=== PATIENT | female | born 1945 | race Two or more races ===

== ENCOUNTER 2017-10-23 10:16 | Observation (INO) | payer MEDICARE, MEDICAID ==
[2017-10-23] VITALS (7 sets, daily range): BP systolic 113–169; BP diastolic 68–92; PULSE 63–95; RESP 16–20; TEMP 96.1–97.7; O2SAT 96–100
[~2017-10-23] VITALS: Ht 165.1 cm; Wt 83.5 kg
[~2017-10-23 10:16] MED LIST: ALBU1AER INH; BACT800T5 PO; CITA20TA4 PO; MOME17I; SYMB160A INH; TIZA4CAP PO
[2017-10-23] MEDS ORDERED: LEXA10TA PO (10:36)
[2017-10-23] MEDS ORDERED: ASPI81CH6 CHEW (10:36)
[2017-10-23] MEDS ORDERED: SYMB160A INH (10:36)
--- NOTE | 2017-10-23 10:41 | PD ---
HPI Chief Complaint: Chest Pain Time Seen by Provider: 10:31 Travel History International Travel<30 days: No Contact w/Intl Traveler<30days: No Traveled to known affect area: No History of Present Illness HPI This 72-year-old female is complaining that she had chest pain last night. The pain lasted for about an hour. There is between 2 and 3 AM. She says it woke her from sleep. She does not recall being short of breath and does not recall any diaphoresis or radiation of the pain. She took low-dose aspirin she has not had pain like this before. She has no history of heart disease. She has been checking her blood pressure at home and has had some elevated readings recently. She has a history of depression and takes an antidepressant. She was recently changed to generic Lexapro and thinks that since being on the Lexapro the blood pressure has been somewhat labile. PFSH Past Medical History ?: Not Social History Tobacco Use: No Allergies-Medications (Allergen,Severity, Reaction): Coded Allergies: No Known Allergies (Verified Allergy, Unknown, 10/23/17) Reported Meds & Prescriptions Reported Meds & Active Scripts Active Reported Aspirin Low Dose (Aspirin) 81 Mg Chew 243 Mg CHEW ONCE Symbicort Inh (Budesonide/Formoterol Fumarate) 160-4.5 Mcg/Act Aero 2 Puff INH Q12HR Lexapro (Escitalopram Oxalate) 10 Mg Tab 10 Mg PO DAILY Review of Systems General / Constitutional: No: Fever, Chills Eyes: No: Diploplia, Blurred Vision HENT: Positive: Headaches, No: Vertigo, Lightheadedness Cardiovascular: Positive: Chest Pain or Discomfort, No: Palpitations, Irregular Rhythm Respiratory: No: Cough, Shortness of Breath Gastrointestinal: No: Vomiting, Diarrhea Genitourinary: No: Urgency, Frequency Musculoskeletal: No: Myalgias Skin: No Rash, No Itching Neurologic: No: Weakness, Dizziness Psychiatric: Positive: Depression, No: Anxiety Endocrine: No: Heat Intolerance, Cold Intolerance Hematologic/Lymphatic: No: Easy Bruising Physical Exam Narrative GENERAL: Well-developed male SKIN: Focused skin assessment warm/dry. HEAD: Atraumatic. Normocephalic. EYES: Pupils equal and round. No scleral icterus. No injection or drainage. ENT: No nasal bleeding or discharge. Mucous membranes pink and moist. NECK: Trachea midline. No JVD. CARDIOVASCULAR: Regular rate and rhythm. No murmur appreciated. RESPIRATORY: No accessory muscle use. Clear to auscultation. Breath sounds equal bilaterally. GASTROINTESTINAL: Abdomen soft, non-tender, nondistended. Hepatic and splenic margins not palpable. MUSCULOSKELETAL: No obvious deformities. No clubbing. No cyanosis. No edema. NEUROLOGICAL: Awake and alert. No obvious cranial nerve deficits. Motor grossly within normal limits. Normal speech. PSYCHIATRIC: Appropriate mood and affect; insight and judgment normal. Data Data Last Documented VS Vital Signs Date Time Temp Pulse Resp B/P (MAP) Pulse Ox O2 Delivery O2 Flow Rate FiO2 10/23/17 11:27 96 10/23/17 11:27 70 16 10/23/17 10:30 97.7 Orders Orders Electrocardiogram (10/23/17 10:38) Ckmb (Isoenzyme) Profile (10/23/17 10:38) Complete Blood Count With Diff (10/23/17 10:38) Comprehensive Metabolic Panel (10/23/17 10:38) Magnesium (Mg) (10/23/17 10:38) Prothrombin Time / Inr (Pt) (10/23/17 10:38) Act Partial Throm Time (Ptt) (10/23/17 10:38) Troponin I (10/23/17 10:38) Chest, Single Ap (10/23/17 10:38) Ecg Monitoring (10/23/17 10:38) Bilateral Bp Monitoring (10/23/17 10:38) Iv Access Insert/Monitor (10/23/17 10:38) Oximetry (10/23/17 10:38) Oxygen Administration (10/23/17 10:38) Sodium Chloride 0.9% Flush (Ns Flush) (10/23/17 10:45) Admit Order (Ed Use Only) (10/23/17 12:20) Labs Laboratory Tests Test 10/23/17 10:25 White Blood Count 8.0 TH/MM3 Red Blood Count 4.70 MIL/MM3 Hemoglobin 13.0 GM/DL Hematocrit 39.3 % Mean Corpuscular Volume 83.7 FL Mean Corpuscular Hemoglobin 27.6 PG Mean Corpuscular Hemoglobin Concent 33.0 % Red Cell Distribution Width 13.8 % Platelet Count 284 TH/MM3 Mean Platelet Volume 9.4 FL Neutrophils (%) (Auto) 67.5 % Lymphocytes (%) (Auto) 25.1 % Monocytes (%) (Auto) 5.8 % Eosinophils (%) (Auto) 1.4 % Basophils (%) (Auto) 0.2 % Neutrophils # (Auto) 5.4 TH/MM3 Lymphocytes # (Auto) 2.0 TH/MM3 Monocytes # (Auto) 0.5 TH/MM3 Eosinophils # (Auto) 0.1 TH/MM3 Basophils # (Auto) 0.0 TH/MM3 CBC Comment DIFF FINAL Differential Comment Prothrombin Time 10.9 SEC Prothromb Time International Ratio 1.1 RATIO Activated Partial Thromboplast Time 29.5 SEC Blood Urea Nitrogen 13 MG/DL Creatinine 0.70 MG/DL Random Glucose 109 MG/DL Total Protein 7.3 GM/DL Albumin 3.4 GM/DL Calcium Level 8.9 MG/DL Magnesium Level 1.7 MG/DL Alkaline Phosphatase 101 U/L Aspartate Amino Transf (AST/SGOT) 19 U/L Alanine Aminotransferase (ALT/SGPT) 23 U/L Total Bilirubin 0.6 MG/DL Sodium Level 141 MEQ/L Potassium Level 3.9 MEQ/L Chloride Level 107 MEQ/L Carbon Dioxide Level 25.9 MEQ/L Anion Gap 8 MEQ/L Estimat Glomerular Filtration Rate 83 ML/MIN Total Creatine Kinase 41 U/L Troponin I LESS THAN 0.02 NG/ML MDM Medical Decision Making Medical Screen Exam Complete: Yes Emergency Medical Condition: Yes Medical Record Reviewed: Yes Differential Diagnosis Differential includes atypical chest pain, coronary artery disease, GERD, Narrative Course EKG shows normal sinus rhythm. Troponin is less than 0.02. I will recommend evaluation the chest pain center Diagnosis Primary Impression: Chest pain Admitting Information Admitting Physician Requests: Observation Clarence Izaguirre MD Oct 23, 2017 10:41
[2017-10-23] MEDS ORDERED: SODIUM CHLORIDE 0.9% FLUSH 10 ML FLUSH IVF PRN (10:45)
[2017-10-23 11:01] LABS: AUTOMATED NEUTROPHIL # 5.4 TH/MM3 (1.8-7.7); BASOPHIL % 0.2 % (0.0-2.0); EOSINOPHIL # 0.1 TH/MM3 (0-0.4); EOSINOPHIL % 1.4 % (0.0-4.0); HEMATOCRIT 39.3 % (35.0-46.0); LYMPH % 25.1 % (9.0-44.0); MEAN CELL VOLUME 83.7 FL (80.0-100.0); MEAN CORPUSCULAR HEMOGLOBIN 27.6 PG (27.0-34.0); MEAN PLATELET VOLUME 9.4 FL (7.0-11.0); MONO % 5.8 % (0.0-8.0); MONOCYTE # 0.5 TH/MM3 (0-0.9); NEUT % 67.5 % (16.0-70.0); PLATELET COUNT 284 TH/MM3 (150-450); RED CELL DISTRIBUTION WIDTH 13.8 % (11.6-17.2)
[2017-10-23 11:07] LABS: INTERNATIONAL NORMALIZED RATIO 1.1 RATIO; PROTHROMBIN TIME - PATIENT 10.9 SEC (9.8-11.6)
[2017-10-23 11:15] LABS: CHLORIDE 107 MEQ/L (98-107); SODIUM (NA) 141 MEQ/L (136-145)
[2017-10-23 11:19] LABS: ALBUMIN 3.4 GM/DL (3.4-5.0); BICARBONATE 25.9 MEQ/L (21.0-32.0); BLOOD UREA NITROGEN 13 MG/DL (7-18); CALCIUM 8.9 MG/DL (8.5-10.1); GLUCOSE,RANDOM 109 MG/DL (74-106); MAGNESIUM 1.7 MG/DL (1.5-2.5)
[2017-10-23 11:22] LABS: ALT (GPT) 23 U/L (10-53); AST (GOT) 19 U/L (15-37); GLOMERULAR FILTRATION RATE 83 ML/MIN (>89)
[2017-10-23 11:24] LABS: TOTAL BILIRUBIN ADULT 0.6 MG/DL (0.2-1.0); TOTAL PROTEIN 7.3 GM/DL (6.4-8.2)
[2017-10-23 11:25] LABS: ALKALINE PHOSPHATASE 101 U/L (45-117)
[2017-10-23 11:35] LABS: TROPONIN I LESS THAN 0.02 NG/ML (0.02-0.05)
--- NOTE | 2017-10-23 12:03 | RADRPT ---
EXAM DATE/TIME: 10/23/2017 11:03 [facility] COMPARISON: No previous studies available for comparison. INDICATIONS : Chest pain since last night. MEDICAL HISTORY : Asthma. SURGICAL HISTORY : None. ENCOUNTER: Initial ACUITY: 2 days PAIN SCORE: 6/10 LOCATION: Bilateral chest FINDINGS: The cardiac silhouette is enlarged in transverse diameter. The lungs are free of acute parenchymal op acity. No effusions are identified. CONCLUSION: Cardiomegaly. No acute pulmonary disease. Curtis Johnson MD on October 23, 2017 at 12:01 Board Certified Radiologist. This report was verified electronically.
[2017-10-23] MEDS ORDERED: ACETAMINOPHEN/HYDROcodone 325 MG/7.5 MG TAB PO PRN (13:00)
[2017-10-23] MEDS ORDERED: NITROGLYCERIN 0.4 MG SL 25 TABS/BTL SL PRN (13:00)
[2017-10-23] MEDS ORDERED: SODIUM CHLORIDE 0.9% FLUSH 10 ML FLUSH IV FLUSH PRN (13:00)
[2017-10-23] MEDS ORDERED: ACETAMINOPHEN 500 MG CPLT PO PRN (13:00)
[2017-10-23] MEDS ORDERED: ONDANSETRON HCL 4 MG/2 ML VIAL IV PUSH PRN (13:00)
[2017-10-23] MEDS ORDERED: MORPHINE SULFATE 2 MG/ML INJ IV PUSH PRN (13:15)
--- NOTE | 2017-10-23 14:00 | HHI.HP ---
HPI Service [facility] Primary Care Physician No Primary Care Physician Admission Diagnosis CHEST PAIN Diagnoses: Chief Complaint: Chest pain History of Present Illness This patient is a 72-year-old female with a history of asthma and depression. For the last several months she's had intermittent elevated blood pressure. She says once her Lexapro was changed to generic her blood pressure became unstable. She does not follow up with the primary doctor's locally. She has had intermittent chest discomfort for one day. It lasted for about an hour and after she took an aspirin it resolved. It was nonradiating and severe, and it has been localized to the epigastric area. She has not taken any Pepcid or Tums. She does not recall having any shortness of breath, diaphoresis or radiation of the pain. She did come to the emergency room for further evaluation. At home her blood pressure was 160/100 and in the emergency room was 162/92. Patient's EKG on my review does show some left ventricle hypertrophy, x-ray may have some slight increased cardiac silhouette but otherwise the pulmonary film is normal. Patient and recommended for observation in the chest pain center for further evaluation of atypical chest pain Review of Systems Constitutional: DENIES: Diaphoretic episodes, Fatigue, Fever, Weight gain, Weight loss, Chills, Dizziness, Change in appetite, Night Sweats Endocrine: DENIES: Abnorml menstrual pattern, Heat/cold intolerance, Polydipsia , Polyuria, Polyphagia Eyes: DENIES: Blurred vision, Diplopia, Eye inflammation, Eye pain, Vision loss , Photosensitivity, Double Vision Ears, nose, mouth, throat: DENIES: Tinnitus, Hearing loss, Vertigo, Nasal discharge, Oral lesions, Throat pain, Hoarseness, Ear Pain, Running Nose, Epistaxis, Sinus Pain, Toothache, Odynophagia Respiratory: DENIES: Apneas, Cough, Snoring, Wheezing, Hemoptysis, Sputum production, Shortness of breath Cardiovascular: COMPLAINS OF: Chest pain Genitourinary: DENIES: Abnormal vaginal bleeding, Dysmenorrhea, Dyspareunia, Sexual dysfunction, Urinary frequency, Urinary incontinence, Urgency, Hematuria , Dysuria, Nocturia, Vaginal discharge Musculoskeletal: COMPLAINS OF: Joint pain (in the knees), DENIES: Muscle aches , Stiffness, Joint Swelling, Back pain, Neck pain Integumentary: DENIES: Abnormal pigmentation, Pruritus, Rash, Nail changes, Breast masses, Breast skin changes, Nipple discharge Hematologic/lymphatic: DENIES: Bruising, Lymphadenopathy Immunologic/allergic: DENIES: Eczema, Urticaria Psychiatric: DENIES: Anxiety, Confusion, Mood changes, Depression, Hallucinations, Agitation, Suicidal Ideation, Homicidal Ideation, Delusions Except as stated in HPI: all other systems reviewed are Neg Past Family Social History Past Medical History Anxiety/depression Asthma Past Surgical History Denies Reported Medications Reviewed in the EMR, took an aspirin yesterday Allergies: Coded Allergies: No Known Allergies (Verified Allergy, Unknown, 10/23/17) Active Ordered Medications Reviewed in the EMR Family History Father in his 80s from Alzheimer's-related complication Mother at 79 cause unknown Social History Lives alone, no tobacco alcohol Retired adjunct nursing faculty Physical Exam Vital Signs Vital Signs Date Time Temp Pulse Resp B/P (MAP) Pulse Ox O2 Delivery O2 Flow Rate FiO2 10/23/17 13:30 10/23/17 11:27 96 10/23/17 11:27 70 16 146/88 (107) 96 10/23/17 10:31 95 18 99 10/23/17 10:30 97.7 95 16 169/92 (117) 99 Physical Exam GENERAL: This is a well-nourished, well-developed patient, in no apparent distress. SKIN: No rashes, ecchymoses or lesions. Cool and dry. HEAD: Atraumatic. Normocephalic. No temporal or scalp tenderness. EYES: Pupils equal round and reactive. Extraocular motions intact. No scleral icterus. No injection or drainage. ENT: Nose without bleeding, purulent drainage or septal hematoma. Throat without erythema, tonsillar hypertrophy or exudate. Uvula midline. Airway patent. NECK: Trachea midline. No JVD or lymphadenopathy. Supple, nontender, no meningeal signs. CARDIOVASCULAR: Regular rate and rhythm without murmurs, gallops, or rubs. RESPIRATORY: Clear to auscultation. Breath sounds equal bilaterally. No wheezes , rales, or rhonchi. GASTROINTESTINAL: Abdomen soft, non-tender, nondistended. No hepato-splenomegaly , or palpable masses. No guarding. MUSCULOSKELETAL: Extremities without clubbing, cyanosis, or edema. No joint tenderness, effusion, or edema noted. No calf tenderness. Negative Homans sign bilaterally. NEUROLOGICAL: Awake and alert. Cranial nerves II through XII intact. Motor and sensory grossly within normal limits. Five out of 5 muscle strength in all muscle groups. Normal speech. Laboratory Laboratory Tests Test 10/23/17 10:25 White Blood Count 8.0 Red Blood Count 4.70 Hemoglobin 13.0 Hematocrit 39.3 Mean Corpuscular Volume 83.7 Mean Corpuscular Hemoglobin 27.6 Mean Corpuscular Hemoglobin Concent 33.0 Red Cell Distribution Width 13.8 Platelet Count 284 Mean Platelet Volume 9.4 Neutrophils (%) (Auto) 67.5 Lymphocytes (%) (Auto) 25.1 Monocytes (%) (Auto) 5.8 Eosinophils (%) (Auto) 1.4 Basophils (%) (Auto) 0.2 Neutrophils # (Auto) 5.4 Lymphocytes # (Auto) 2.0 Monocytes # (Auto) 0.5 Eosinophils # (Auto) 0.1 Basophils # (Auto) 0.0 CBC Comment DIFF FINAL Differential Comment Prothrombin Time 10.9 Prothromb Time International Ratio 1.1 Activated Partial Thromboplast Time 29.5 Blood Urea Nitrogen 13 Creatinine 0.70 Random Glucose 109 Total Protein 7.3 Albumin 3.4 Calcium Level 8.9 Magnesium Level 1.7 Alkaline Phosphatase 101 Aspartate Amino Transf (AST/SGOT) 19 Alanine Aminotransferase (ALT/SGPT) 23 Total Bilirubin 0.6 Sodium Level 141 Potassium Level 3.9 Chloride Level 107 Carbon Dioxide Level 25.9 Anion Gap 8 Estimat Glomerular Filtration Rate 83 Total Creatine Kinase 41 Troponin I LESS THAN 0.02 Result Diagram: 10/23/17 1025 10/23/17 1025 Imaging Last Impressions Chest X-Ray 10/23/17 1038 Signed Impressions: Service Date/Time: Monday, October 23, 2017 11:03 - CONCLUSION: Cardiomegaly. No acute pulmonary disease. Curtis Johnson MD Assessment and Plan Problem List: (1) HTN (hypertension) ICD Code: I10 - Essential (primary) hypertension Plan: Patient will need antihypertensive management EKG on my review of systolic left ventricle hypertrophy probable hypertension (2) Chest pain ICD Code: R07.9 - Chest pain Status: Acute Plan: Atypical, cardiac eval pending Follow-up serial cardiac enzymes and EKG Permanent Comment: chest pressure and palpitations at night Last Edited By: Lucius Aj on Nov 27, 2013 10:54 Discussed Condition With Patient, Vashti Emerson M.D., MD Oct 23, 2017 14:00
[2017-10-23 15:01] LABS: TROPONIN I LESS THAN 0.02 NG/ML (0.02-0.05)
[2017-10-23] MEDS: LISINOPRIL 10 MG TAB PO SCH (15:39)
--- NOTE | 2017-10-23 16:44 | EKG ---
Date Performed: 10/23/2017 Time Performed: 10:20:56 PTAGE: 72 years EKG: Sinus rhythm MODERATE VOLTAGE CRITERIA FOR LVH, CONSIDER NORMAL VARIANT BORDERLINE ECG INTERPRETATION BASED ON A DEFAULT AGE OF 40 YEARS NO PREVIOUS TRACING DOCTOR: Alexy Jeff Interpretating Date/Time 10/23/2017 16:42:49
[2017-10-23 19:22] LABS: TROPONIN I LESS THAN 0.02 NG/ML (0.02-0.05)
[2017-10-23] MEDS: SODIUM CHLORIDE 0.9% FLUSH 10 ML FLUSH IV FLUSH SCH (20:46)
[2017-10-24] VITALS: BP 116/62; PULSE 63; RESP 20; TEMP 96.4; O2SAT 96
[2017-10-24 04:00] VITALS: BP 120/75; PULSE 65; RESP 20; TEMP 96.2; O2SAT 96
[2017-10-24 08:00] VITALS: BP 123/72; PULSE 67; RESP 18; TEMP 97.5; O2SAT 97
--- NOTE | 2017-10-24 08:20 | HHI.PR ---
Subjective Remarks Patient seen and examined today for follow-up on chest pain. Patient denies any recurrent chest discomfort. States that she does have a headache this morning. Blood pressure does appear to be much improved. Objective Vital Signs Date Time Temp Pulse Resp B/P (MAP) Pulse Ox O2 Delivery O2 Flow Rate FiO2 10/24/17 04:00 96.2 65 20 120/75 (90) 96 10/24/17 00:00 96.4 63 20 116/62 (80) 96 10/23/17 23:00 63 10/23/17 20:00 96.1 66 20 113/68 (83) 96 10/23/17 16:00 97.0 75 18 134/73 (93) 100 10/23/17 15:10 65 10/23/17 13:45 97.3 68 20 165/78 (107) 98 10/23/17 13:30 10/23/17 11:27 96 10/23/17 11:27 70 16 146/88 (107) 96 10/23/17 10:31 95 18 99 10/23/17 10:30 97.7 95 16 169/92 (117) 99 I/O 10/23/17 10/23/17 10/23/17 10/24/17 10/24/17 10/24/17 07:00 15:00 23:00 07:00 15:00 23:00 Intake Total 0 ml Balance 0 ml Intake Oral 0 ml # Voids 3 Result Diagram: 10/23/17 1025 10/23/17 1025 Imaging Last Impressions Myocardial Perfusion Scan Nuc Med 10/24/17 0600 Signed Impressions: Service Date/Time: Tuesday, October 24, 2017 09:02 - CONCLUSION: 1. Unremarkable myocardial perfusion scan. RISK CATEGORY: Low (<1%% Annual Mortality Rate) Curtis Johnson MD Chest X-Ray 10/23/17 1038 Signed Impressions: Service Date/Time: Monday, October 23, 2017 11:03 - CONCLUSION: Cardiomegaly. No acute pulmonary disease. Curtis Johnson MD Objective Remarks GENERAL: Well-developed, well-nourished, in no acute distress. alert and orientated HEENT: Head is normocephalic without any lesions or masses noted. Facial features are symmetric. Eyes: Extraocular muscles are intact. Conjunctivae were clear. NECK: Supple without any masses. Trachea midline no deviation. No JVD, CARDIAC: Regular rhythm, regular rate. S1/S2 are heard. No murmurs gallops or rubs. LUNGS: Clear to auscultation bilaterally. No wheeze, rhonchi or rales. No use of accessory muscles on inspiration or expiration. ABDOMEN: Soft, nontender. Nondistended. Bowel sounds heard in all 4 quadrants. No organomegaly or masses. Negative rebound, negative guarding EXTREMITIES: No edema, pulses are equal bilaterally. No cyanosis or clubbing NEUROLOGY: Mood and affect appear appropriate. Cranial nerves II through XII grossly intact. Moving all extremities, speech is clear A/P Assessment and Plan Chest pain, atypical Patient underwent cardiac evaluation with serial cardiac enzymes that remain negative and EKGs without any changes Patient ruled out for any acute coronary event. Nuclear stress test was performed rule out any underlying ischemia Nuclear stress test did not indicate any underlying ischemia, low risk Continue aspirin Hypertension, improved Continue lisinopril 10 mg daily DVT prevention Low risk, early ambulation Discharge Planning Discharge home in stable condition Activity: Ad caro. Diet: Healthy heart diet Medications per medication reconciliation Follow-up with primary medical doctor in one week Murray Kirkpatrick Oct 24, 2017 08:20
[2017-10-24] MEDS ORDERED: ASPIRIN 325 MG TAB PO SCH (09:00)
[2017-10-24] MEDS ORDERED: REGADENOSON INJ 0.4 MG/5 ML SYR IV ONE (09:17)
--- NOTE | 2017-10-24 10:00 | TR ---
Date Performed: 10/24/2017 Time Performed: 09:27:58 DOCTOR: Curtis Contreras DRUG LIST: CLINICAL HISTORY: REASON FOR TEST: REASON FOR ENDING: OBSERVATION: CONCLUSION: Lexiscan stress test was performed under standard four minute protocol. Radionucl[place] e was injected one minute prior to ending the test. No electrocardiographic abormalities were present to suggest ischemia. Nuclear imaging and interpretation are pending. COMMENTS:
--- NOTE | 2017-10-24 10:21 | EKG ---
Date Performed: 10/23/2017 Time Performed: 17:15:01 PTAGE: 72 years EKG: Sinus rhythm MINIMAL VOLTAGE CRITERIA FOR LVH, CONSIDER NORMAL VARIANT BORDERLINE ECG PREVIOUS TRACING : 10/23/2017 14.35 DOCTOR: Reynold Genao Interpretating Date/Time 10/24/2017 10:20:48
--- NOTE | 2017-10-24 10:37 | RADRPT ---
EXAM DATE/TIME: 10/24/2017 09:02 [facility] COMPARISON: No previous studies available for comparison. INDICATIONS : Substernal chest pain. Angina. DOSE: 25.8 mCi Tc99m Myoview at stress. 8.2 mCi Tc99m Myoview at rest. 0.4 mg Lexiscan STRESS SYMPTOMS: Short of breath. EJECTION FRACTION: 64% MEDICAL HISTORY : Hypertension. Asthma. SURGICAL HISTORY : None. ENCOUNTER: Initial ACUITY: 1 day PAIN SCALE: 5/10 LOCATION: Substernal chest TECHNIQUE: The patient underwent pharmacologic stress with infusion of prescribed dose. Continuous ECG tracing was monitored during stress. Gated SPECT imaging was performed after stress and conventional SPECT i maging was performed at rest. The examination was performed on a SPECT/CT scanner, both attenuation and non-corrected datasets were reviewed. FINDINGS: DISTRIBUTION: The maximum perfused segment at stress is in the inferior wall. PERFUSION STUDY: The pattern of perfusion at stress is within normal limits. GATED STUDY: There is intact wall motion and thickening without hypokinetic or dyskinetic segments. CONCLUSION: 1. Unremarkable myocardial perfusion scan. RISK CATEGORY: Low (<1% Annual Mortality Rate) Curtis Johnson MD on October 24, 2017 at 10:34 Board Certified Radiologist. This report was verified electronically.
[2017-10-24] MEDS ORDERED: LISI10TA3 PO (10:38)
--- NOTE | 2017-10-24 10:39 | HHI.DCPOC ---
Discharge Care Plan Diagnosis: (1) Chest pain Goals to Promote Your Health * To prevent worsening of your condition and complications * To maintain your health at the optimal level Directions to Meet Your Goals Take your medications as prescribed Follow your dietary instruction Follow activity as directed Keep your appointments as scheduled Take your immunizations and boosters as scheduled If your symptoms worsen call your PCP, if no PCP go to Urgent Care Center or Emergency Room Smoking is Dangerous to Your Health. Avoid second hand smoke Call the 24-hour hour crisis hotline for domestic abuse at Murray Kirkpatrick Oct 24, 2017 10:39
[2017-10-24] MEDS: SODIUM CHLORIDE 0.9% FLUSH 10 ML FLUSH IV FLUSH SCH (10:57)
[2017-10-24] MEDS: LISINOPRIL 10 MG TAB PO SCH (10:57)
--- NOTE | 2017-10-24 12:30 | EKG ---
Date Performed: 10/23/2017 Time Performed: 14:35:31 PTAGE: 72 years EKG: SINUS BRADYCARDIA MODERATE INTRAVENTRICULAR CONDUCTION DELAY MODERATE VOLTAGE CRITERIA FOR LVH, CONSIDER NORMAL VARIANT BORDERLINE ECG PREVIOUS TRACING : 10/23/2017 10.20 DOCTOR: Reynold Genao Interpretating Date/Time 10/24/2017 12:29:21
== END 2017-10-24 12:27 | disposition home or self-care (01) ==
LOC: PHED 10:16 → PHEDA 12:21 → PH3B 13:25
PROVIDERS: ADMIT Hospitalist; ATTEND Hospitalist
DX: R07.89 Other chest pain (principal); I10 Essential (primary) hypertension; R51 Headache; J45.909 Unspecified asthma, uncomplicated; F41.9 Anxiety disorder, unspecified; F32.9 Major depressive disorder, single episode, unspecified
CPT/HCPCS: 71045; 78452; 80053; 82550; 83735; 84484; 85025; 85610; 85730; 93005; 93017; 99285; A9502; G0378; J2785